=== PATIENT | male | born 1985 ===

== ENCOUNTER → 2018-10-24 22:27 | Outpatient (REF) | payer OTHER, SELFPAY ==
[2018-10-24 23:55] LABS: Add Manual Diff / Slide Review NO; Basophils Percent Auto 0.7 % (0-2); Eosinophils Percent Auto 8.2 % (2-4); Hematocrit 43.9 % (41-53); Hemoglobin 14.7 g/dL (13.5-17.5); Lymphocytes Percent Auto 33.5 % (25-40); Mean Corpuscular HGB Conc 33.5 % (30-36); Mean Corpuscular Hemoglobin 28.5 PG (26-34); Neutrophils Absolute Auto 1800 /uL (1500-7000); Neutrophils Percent Auto 47.6 % (50-75); Platelet Count 185 X10^3/uL (150-400); Red Blood Cell Count 5.16 X10^6/uL (4.5-5.9); Red Cell Distribution Width 13.9 % (11.6-14.8); White Blood Cell Count 3.9 X10^3/uL (4.5-11.0)
[2018-10-25 01:48] LABS: Alanine Aminotransferase 32 IU/L (21-72); Albumin 4.2 g/dL (3.5-5.0); Albumin Globulin Ratio 1.6 (1.0-2.8); Alkaline Phosphatase 64 U/L (38-126); Aspartate Aminotransferase 36 IU/L (17-59); BUN Creatinine Ratio 18.6 (6-22); Bilirubin Total 0.8 mg/dL (0.2-1.3); Blood Urea Nitrogen 13 mg/dL (9-20); Calcium 9.1 mg/dL (8.4-10.2); Carbon Dioxide 25 mmol/L (22-32); Chloride 104 mmol/L (98-107); Estimated Glomerular Filt Rate > 60.0 mL/min (>60); Globulin 2.6 g/dL (1.7-4.1); Glucose 88 mg/dL (70-100); HEMOLYSIS < 15 (0-50); Potassium 4.2 mmol/L (3.4-5.1); Sodium 144 mmol/L (137-145); Total Protein 6.8 g/dL (6.3-8.2)
[2018-10-25 02:05] LABS: Luteinizing Hormone 2.67 mIU/mL
[2018-10-25 02:08] LABS: Free T4, Direct Thyroxine 1.38 ng/dL (0.78-2.19)
[2018-10-25 02:22] LABS: Thyroid Stimulating Hormone 3.14 uIU/mL (0.47-4.68)
[2018-10-26 13:45] LABS: Sex Hormone Binding Globulin 26 nmol/L (10-50)
[2018-10-26 15:33] LABS: Progesterone < 0.5 ng/mL (< 1.4)
[2018-10-26 15:35] LABS: Estradiol 28 pg/mL (< 40)
[2018-10-28 09:09] LABS: Testosterone Free 89.5 pg/mL (35.0-155.0); Testosterone Total 431 ng/dL (250-1100)
[2018-10-28 10:25] LABS: Z- Score (Male) 0.2 SD (-2.0 - +2.0)
== END ==
LOC: LAB 22:27
PROVIDERS: Visit Provider Family Medicine
DX: F52.21 Male erectile disorder (principal); Z13.89 Encounter for screening for other disorder
CPT/HCPCS: 36415; 80053; 82670; 83002; 84144; 84270; 84305; 84402; 84403; 84439; 84443; 85025